=== PATIENT | male | born 1970 | race Caucasian/White ===

== ENCOUNTER 2019-04-16 22:27 | Observation (INO) | payer OTHER ==
[2019-04-16 22:59] VITALS: BMI 34.2
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
[2019-04-17 00:20] LABS: BASO % 0.9 % (0-2.0); EOS % 0.2 % (0-4.5); HEMATOCRIT 45.5 % (35.4-49); HEMOGLOBIN 15.6 GM/dL (11.7-16.9); LYMPH % 11.6 % (8-40); MCH 30.8 pg (25.7-33.7); MCHC 34.3 g/dl (32.0-35.9); MEAN CELL VOLUME 89.7 fl (80-96); MONO % 6.4 % (3.8-10.2); NEUT % 80.9 % (42.8-82.8); PLATELET COUNT 313 K/MM3 (134-434); RBC 5.07 M/mm3 (4.00-5.60); RDW 13.6 % (11.9-15.9); WHITE BLOOD COUNT 14.2 K/mm3 (4.0-10.0)
[2019-04-17 00:40] LABS: ALBUMIN 4.3 g/dl (3.4-5.0); BILIRUBIN,TOTAL 0.4 mg/dL (0.2-1); BLOOD UREA NITROGEN 15.3 mg/dL (7-18); CALCIUM 9.7 mg/dL (8.5-10.1); CREATININE 1.4 mg/dL (0.55-1.3); POTASSIUM 4.2 mmol/L (3.5-5.1); TOT PROT 7.9 g/dl (6.4-8.2)
[2019-04-17] MEDS ORDERED: ASPIRIN 81 MG CHEWABLE TABLETS PO ONE (00:52)
[2019-04-17] MEDS ORDERED: CLOPIDOGREL BISULFATE 300 MG TABLET PO ONE (00:52)
[2019-04-17] MEDS ORDERED: CLOPIDOGREL BISULFATE 300 MG TABLET ONE ×2 (00:52→01:12)
[2019-04-17] MEDS ORDERED: ASPIRIN 81 MG CHEWABLE TABLETS ONE ×2 (00:52→01:11)
[2019-04-17] MEDS ORDERED: SODIUM CHLORIDE 1,000 ML IV STA ×2 (01:02→02:41)
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
[2019-04-17] MEDS ORDERED: SODIUM CHLORIDE 1,000 ML IV SCH (03:15)
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
[2019-04-17 07:46] LABS: BASO % 0.6 % (0-2.0); EOS % 0.9 % (0-4.5); HEMATOCRIT 43.6 % (35.4-49); HEMOGLOBIN 14.8 GM/dL (11.7-16.9); LYMPH % 23.9 % (8-40); MCH 30.5 pg (25.7-33.7); MCHC 33.9 g/dl (32.0-35.9); MEAN CELL VOLUME 89.9 fl (80-96); MONO % 9.2 % (3.8-10.2); NEUT % 65.4 % (42.8-82.8); PLATELET COUNT 288 K/MM3 (134-434); RBC 4.85 M/mm3 (4.00-5.60); RDW 13.7 % (11.9-15.9); WHITE BLOOD COUNT 9.8 K/mm3 (4.0-10.0)
[2019-04-17 08:18] LABS: ALBUMIN 3.8 g/dl (3.4-5.0); BILIRUBIN,TOTAL 0.5 mg/dL (0.2-1); BLOOD UREA NITROGEN 13.4 mg/dL (7-18); CALCIUM 9.3 mg/dL (8.5-10.1); CREATININE 1.2 mg/dL (0.55-1.3); POTASSIUM 3.9 mmol/L (3.5-5.1)
--- NOTE | 2019-04-17 09:13 | EKG ---
Test Reason : Blood Pressure : / mmHG Vent. Rate : 073 BPM Atrial Rate : 073 BPM P-R Int : 158 ms QRS Dur : 098 ms QT Int : 394 ms P-R-T Axes : 016 -07 -11 degrees QTc Int : 434 ms NORMAL SINUS RHYTHM POSSIBLE LEFT ATRIAL ENLARGEMENT INCOMPLETE RIGHT BUNDLE BRANCH BLOCK LEFT VENTRICULAR HYPERTROPHY INFERIOR INFARCT , AGE UNDETERMINED ABNORMAL ECG WHEN COMPARED WITH ECG OF 27-OCT-2017 11:10, INFERIOR INFARCT IS NOW PRESENT ST NOW DEPRESSED IN INFERIOR LEADS T WAVE INVERSION NOW EVIDENT IN INFERIOR LEADS T WAVE AMPLITUDE HAS INCREASED IN LATERAL LEADS Confirmed by Pam Clifford ([id number]) on 04/17/2019 9:13:19 AM Referred By: Confirmed By:Pam Clifford
--- NOTE | 2019-04-17 09:13 | EKG ---
Test Reason : Blood Pressure : / mmHG Vent. Rate : 070 BPM Atrial Rate : 070 BPM P-R Int : 164 ms QRS Dur : 098 ms QT Int : 398 ms P-R-T Axes : 042 009 023 degrees QTc Int : 429 ms POOR DATA QUALITY, INTERPRETATION MAY BE ADVERSELY AFFECTED NORMAL SINUS RHYTHM POSSIBLE LEFT ATRIAL ENLARGEMENT INCOMPLETE RIGHT BUNDLE BRANCH BLOCK BORDERLINE ECG WHEN COMPARED WITH ECG OF 16-APR-2019 23:51, CRITERIA FOR INFERIOR INFARCT ARE NO LONGER PRESENT T WAVE INVERSION LESS EVIDENT IN INFERIOR LEADS Confirmed by Pam Clifford ([id number]) on 04/17/2019 9:12:47 AM Referred By: Confirmed By:Pam Clifford
--- NOTE | 2019-04-17 09:48 | EKG ---
Test Reason : Blood Pressure : / mmHG Vent. Rate : 063 BPM Atrial Rate : 063 BPM P-R Int : 172 ms QRS Dur : 096 ms QT Int : 420 ms P-R-T Axes : 037 -07 014 degrees QTc Int : 429 ms NORMAL SINUS RHYTHM INCOMPLETE RIGHT BUNDLE BRANCH BLOCK BORDERLINE ECG WHEN COMPARED WITH ECG OF 17-APR-2019 00:59, NO SIGNIFICANT CHANGE WAS FOUND Confirmed by Pam Clifford ([id number]) on 04/17/2019 9:48:05 AM Referred By: Confirmed By:Pam Clifford
[2019-04-17 10:12] VITALS: BP 125/80; PULSE 74; TEMP 98.1
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
== END 2019-04-17 11:50 | disposition left against medical advice (07) ==
LOC: JER 22:27 → JERBED 04-17 01:41 → INTOOBSV 04-17 01:41
PROVIDERS: ADMIT Internal Medicine
PROC: 3E0337Z Introduction of Electrolytic and Water Balance Substance into Peripheral Vein, Percutaneous Approach (ICD-10-PCS; principal; 2019-04-17)
DX: I24.8 Other forms of acute ischemic heart disease (principal); E86.0 Dehydration; N17.9 Acute kidney failure, unspecified; R77.8 Other specified abnormalities of plasma proteins; D72.829 Elevated white blood cell count, unspecified; I45.10 Unspecified right bundle-branch block; R74.8 Abnormal levels of other serum enzymes; D72.823 Leukemoid reaction; M62.82 Rhabdomyolysis; J70.5 Respiratory conditions due to smoke inhalation; X00.0XXA Exposure to flames in uncontrolled fire in building or structure, initial encounter; X00.1XXA Exposure to smoke in uncontrolled fire in building or structure, initial encounter; Z57.8 Occupational exposure to other risk factors; Y99.0 Civilian activity done for income or pay
CPT/HCPCS: 36415; 71046-TC-FY; 80053; 82550; 82553; 83605; 84484; 85025; 93005; 93010; 96360; 96361; 99285-25; G0378; J7030

== ENCOUNTER 2021-01-11 21:06 | Inpatient (IN) | payer OTHER, BC ==
[2021-01-11 22:13] LABS: BASO % 1.4 % (0-2.0); EOS % 1.3 % (0-4.5); HEMATOCRIT 43.7 % (35.4-49); HEMOGLOBIN 14.8 GM/dL (11.7-16.9); LYMPH % 20.5 % (8-40); MCH 30.6 pg (25.7-33.7); MEAN CELL VOLUME 90.1 fl (80-96); MEAN PLT VOLUME 7.2 fl (7.5-11.1); MONO % 9.7 % (3.8-10.2); NEUT % 67.1 % (42.8-82.8); PLATELET COUNT 354 10^3/uL (134-434); RBC 4.84 M/mm3 (4.00-5.60); RDW 13.6 % (11.9-15.9); WHITE BLOOD COUNT 10.9 K/mm3 (4.0-10.0)
[2021-01-11 22:19] LABS: INR 1.04 (0.83-1.09); PROTHROMBIN TIME (PATIENT) 12.2 SEC (9.7-13.0)
[2021-01-11 22:21] LABS: ACTIVATED PTT 31.7 SECONDS (25.2-36.5)
[2021-01-11 22:40] LABS: CHLORIDE 105 mmol/L (98-107); SODIUM 141 mmol/L (136-145)
[2021-01-11 22:42] LABS: ALBUMIN 3.7 g/dl (3.4-5.0); ANION GAP 7 MMOL/L (8-16); CALCIUM 9.2 mg/dL (8.5-10.1); CO2 29 mmol/L (21-32)
[2021-01-11 22:43] LABS: BLOOD UREA NITROGEN 13.6 mg/dL (7-18); GLUCOSE,RANDOM 100 mg/dL (74-106)
[2021-01-11 22:46] LABS: CREATININE 1.2 mg/dL (0.55-1.3); SGOT/AST 29 U/L (15-37); SGPT/ALT 41 U/L (13-61)
[2021-01-11 22:47] LABS: BILIRUBIN,TOTAL 0.3 mg/dL (0.2-1); TOT PROT 7.6 g/dl (6.4-8.2)
[2021-01-11 22:49] LABS: ALK PHOS 87 U/L (45-117)
[2021-01-12] MEDS ORDERED: FLUTICASONE PROP 0.05% 16 GM NASAL SPRAY NS ONE (00:07)
[2021-01-12] MEDS ORDERED: AMOXICILLIN 500 MG CAPSULE (FP) PO ONE (00:09)
[2021-01-12] MEDS ORDERED: AMOXICILLIN 500 MG CAPSULE (FP) ONE (00:14)
[2021-01-12] MEDS: LACTATED RINGERS SOLUTION 1,000 ML/1,000 ML INFUS.BAG IV SCH (04:45)
[2021-01-12 05:15] VITALS: BMI 34.9
[2021-01-12 05:34] LABS: PH,URINE 6.5 (5.0-8.0); URINE APPEARANCE CLEAR; URINE BILIRUBIN NEGATIVE (NEGATIVE); URINE COLOR YELLOW; URINE GLUCOSE (UA) NEGATIVE (NEGATIVE); URINE KETONE NEGATIVE (NEGATIVE); URINE LEUK ESTERASE NEGATIVE (NEGATIVE); URINE NITRITE NEGATIVE (NEGATIVE); URINE PROTEIN NEGATIVE (NEGATIVE)
[2021-01-12 05:44] LABS: METHADONE, UR NEGATIVE (NEGATIVE); OPIATES, URI NEGATIVE (NEGATIVE); PHENCYCLIDINE,URINE NEGATIVE (NEGATIVE); URINE BARBITURATES NEGATIVE (NEGATIVE)
[2021-01-12 05:45] LABS: COCAINE, UR NEGATIVE (NEGATIVE)
[2021-01-12 06:23] LABS: URINE AMPHETAMINES NEGATIVE (NEGATIVE); URINE BENZODIAZEPINES NEGATIVE (NEGATIVE)
[2021-01-12 06:24] LABS: CHLORIDE 107 mmol/L (98-107); SODIUM 141 mmol/L (136-145)
[2021-01-12 06:26] LABS: ALBUMIN 3.3 g/dl (3.4-5.0); ANION GAP 6 MMOL/L (8-16); BLOOD UREA NITROGEN 15.3 mg/dL (7-18); CALCIUM 8.8 mg/dL (8.5-10.1); CO2 28 mmol/L (21-32); GLUCOSE,RANDOM 106 mg/dL (74-106)
[2021-01-12 06:27] LABS: MAGNESIUM 2.2 mg/dL (1.8-2.4)
[2021-01-12 06:28] LABS: SGPT/ALT 40 U/L (13-61)
[2021-01-12 06:29] LABS: HEMATOCRIT 41.1 % (35.4-49); MCH 31.3 pg (25.7-33.7); MEAN CELL VOLUME 91.9 fl (80-96); MEAN PLT VOLUME 7.8 fl (7.5-11.1); PLATELET COUNT 338 10^3/uL (134-434); RBC 4.47 M/mm3 (4.00-5.60); RDW 13.3 % (11.9-15.9); WHITE BLOOD COUNT 9.9 K/mm3 (4.0-10.0)
[2021-01-12 06:30] LABS: PHOSPHOROUS 3.3 mg/dL (2.5-4.9); SGOT/AST 26 U/L (15-37)
[2021-01-12 06:31] LABS: BILIRUBIN,TOTAL 0.2 mg/dL (0.2-1)
[2021-01-12 06:32] LABS: ALK PHOS 80 U/L (45-117)
[2021-01-12 09:24] LABS: ALLENS TEST POSITIVE; ARTERIAL BLOOD GAS PO2 78.4 mmHg (80-100); ARTERIAL BLOOD GAS pH 7.437 (7.350-7.450)
[2021-01-12] MEDS: ENOXAPARIN NA (PORCINE) 40 MG/0.4 ML DISP.SYRIN SQ SCH (10:18)
[2021-01-13] MEDS: LACTATED RINGERS SOLUTION 1,000 ML/1,000 ML INFUS.BAG IV SCH (06:30)
[2021-01-13 07:13] LABS: BASO % 0.5 % (0-2.0); EOS % 1.9 % (0-4.5); HEMATOCRIT 42.2 % (35.4-49); HEMOGLOBIN 14.6 GM/dL (11.7-16.9); LYMPH % 24.5 % (8-40); MCH 31.4 pg (25.7-33.7); MCHC 34.5 g/dl (32.0-35.9); MEAN CELL VOLUME 91.2 fl (80-96); MEAN PLT VOLUME 7.7 fl (7.5-11.1); MONO % 10.5 % (3.8-10.2); NEUT % 62.6 % (42.8-82.8); PLATELET COUNT 351 10^3/uL (134-434); RBC 4.63 M/mm3 (4.00-5.60); RDW 13.7 % (11.9-15.9)
[2021-01-13 07:39] LABS: ALBUMIN 3.1 g/dl (3.4-5.0); BLOOD UREA NITROGEN 14.4 mg/dL (7-18); CALCIUM 9.1 mg/dL (8.5-10.1)
[2021-01-13 07:42] LABS: CREATININE 1.1 mg/dL (0.55-1.3)
[2021-01-13 07:44] LABS: BILIRUBIN,TOTAL 0.4 mg/dL (0.2-1); TOT PROT 6.6 g/dl (6.4-8.2)
[2021-01-13] MEDS: ENOXAPARIN NA (PORCINE) 40 MG/0.4 ML DISP.SYRIN SQ SCH (09:52)
[2021-01-14 06:59] LABS: HEMATOCRIT 43.9 % (35.4-49); HEMOGLOBIN 14.8 GM/dL (11.7-16.9); MCHC 33.8 g/dl (32.0-35.9); MEAN CELL VOLUME 91.6 fl (80-96); MEAN PLT VOLUME 7.8 fl (7.5-11.1); PLATELET COUNT 372 10^3/uL (134-434); RBC 4.79 M/mm3 (4.00-5.60); RDW 13.5 % (11.9-15.9); WHITE BLOOD COUNT 10.2 K/mm3 (4.0-10.0)
[2021-01-14] MEDS ORDERED: guaiFENesin 200 MG/10 ML 10 ML UNIT-DOSE CUPS PO ONE (08:57)
[2021-01-14] MEDS: ENOXAPARIN NA (PORCINE) 40 MG/0.4 ML DISP.SYRIN SQ SCH (11:26)
[2021-01-14 12:04] LABS: ALBUMIN 3.2 g/dl (3.4-5.0); BILIRUBIN,TOTAL 0.4 mg/dL (0.2-1); BLOOD UREA NITROGEN 14.5 mg/dL (7-18); CALCIUM 8.8 mg/dL (8.5-10.1); MAGNESIUM 2.1 mg/dL (1.8-2.4); PHOSPHOROUS 4.2 mg/dL (2.5-4.9); TOT PROT 6.8 g/dl (6.4-8.2)
[2021-01-14] MEDS ORDERED: AMOX TR/POT CLAV 875MG/125MG TABLETS (FP) PO SCH (14:02)
[2021-01-14 15:12] VITALS: BP 137/56; PULSE 81; TEMP 97.7
== END 2021-01-14 18:02 | disposition home or self-care (01) | DRG 204 ==
LOC: JER 21:06 → JERBED 21:49 → J4W 01-12 04:10
PROVIDERS: ADMIT Internal Medicine; ATTEND Internal Medicine
DX: R55 Syncope and collapse (principal); R56.9 Unspecified convulsions; E66.9 Obesity, unspecified; Z68.35 Body mass index [BMI] 35.0-35.9, adult; K21.9 Gastro-esophageal reflux disease without esophagitis; M10.9 Gout, unspecified; R05.3 Chronic cough; I45.10 Unspecified right bundle-branch block; J01.90 Acute sinusitis, unspecified
CPT/HCPCS: 36415; 36600; 70450-TC; 70553-TC; 71046-TC-FY; 80053; 80307; 81003; 82550; 82553; 82803; 82962; 83050; 83605; 83735; 84100; 84443; 84484; 85025; 85027; 85610; 85730; 87899; 93005; 93010; 93306-TC; 95816; 99285-25; C1887; C9803; U0003; U0005

== ENCOUNTER 2023-09-14 05:52 | Emergency (ER) | payer OTHER ==
[2023-09-14 05:55] VITALS: BP 130/90; PULSE 95; RESP 18; TEMP 97.8; BMI 36.3
== END 2023-09-14 07:05 | disposition left against medical advice (07) ==
LOC: JER 05:52
DX: Z53.21 Procedure and treatment not carried out due to patient leaving prior to being seen by health care provider (principal)
CPT/HCPCS: 99281-25